=== PATIENT | male | born 1965 | race Caucasian/White ===

== ENCOUNTER 2020-10-17 21:37 | Inpatient (IN) ==
[2020-10-17] MEDS ORDERED: MORPHINE 4 MG/1 ML VIAL IV ONE (22:12)
[2020-10-17] MEDS ORDERED: ONDANSETRON 4 MG/2 ML VIAL IV STA (22:12)
[2020-10-17] MEDS ORDERED: PIPERACILLIN/TAZOBACTAM 3,375 MG in SODIUM CHLORIDE 0.9% 100 ML IV STA (23:28)
[2020-10-17] MEDS ORDERED: DIPH/TET/ACEL PERT BOOSTER VACCINE 0.5 ML VIAL IM ONE (23:29)
[2020-10-18 00:55] LABS: Basophils % 0.1 % (0.0-0.8); Eosinophils % 0.1 % (0.00-10.9); Hematocrit 44.2 VOL% (42.0-52.0); Hemoglobin 15.3 GM/DL (14.0-18.0); Immature Granulocytes Absolute 0.15 #; Lymphocytes # 0.7 10*3/uL (1.4-4.0); Lymphocytes % 4.2 % (21.2-54.2); Mean Corpuscular HGB Conc 34.6 GM/DL (32-36); Mean Corpuscular Volume 95.5 FL (87-102); Mean Platelet Volume 10.8 FL (9.6-12.0); Monocytes % 8.5 % (1.7-12.7); Neutrophils % 86.1 % (38.7-73.9); Platelet Count 165 T/CUMM (130-400); Red Blood Count 4.63 MC/CUMM (3.8-5.5); Red Cell Distribution Width 12.9 % (9.3-17.3); White Blood Count 15.8 T/CUMM (4-12)
[2020-10-18 01:07] LABS: Calcium 8.7 MG/DL (8.5-10.1); Potassium 4.6 MMOL/L (3.5-5.1)
[2020-10-18 01:11] LABS: CKMB % 0.9 %; Troponin I < 0.015 NG/ML (0.00-0.045)
[2020-10-18] MEDS ORDERED: PROMETHAZINE 25 MG/1 ML VIAL IM PRN (01:31)
[2020-10-18] MEDS ORDERED: HYDROmorphone 2 MG/1 ML VIAL IV PRN ×3 (01:31→08:44)
[2020-10-18] MEDS ORDERED: ACETAMINOPHEN 325 MG TABLET PO PRN (01:31)
[2020-10-18] MEDS: LACTATED RINGERS 1,000 ML IV SCH ×3 (01:41→21:57)
[2020-10-18 02:26] LABS: Band Neutrophils 10 % (0-10); Lymphocytes 8 % (20-55); Segmented Neutrophils 73 % (50-85); Total Cells Counted 100
[2020-10-18 02:27] LABS: Hypochromasia 1+; Platelet Estimate Normal
[2020-10-18] MEDS: ONDANSETRON 4 MG/2 ML VIAL IV PRN ×2 (05:30→09:52)
[2020-10-18] MEDS ORDERED: ALBUTEROL/IPRATROPIUM 3 ML NEB RESP TX PRN (08:46)
[2020-10-18] MEDS ORDERED: KETOROLAC 15 MG/1 ML VIAL IV SCH (09:00)
[2020-10-18] MEDS: PANTOPRAZOLE 40 MG TABLET PO SCH (09:29)
[2020-10-18] MEDS: PIPERACILLIN/TAZOBACTAM 3,375 MG in SODIUM CHLORIDE 0.9% 100 ML IV SCH ×3 (09:29→22:49)
[2020-10-18] MEDS ORDERED: ONDANSETRON 4 MG/2 ML VIAL IV PRN (10:44)
[2020-10-18] MEDS ORDERED: NALOXONE 0.4 MG/ML VIAL IV PRN (10:47)
[2020-10-18] MEDS: KETOROLAC 30 MG/1 ML VIAL IV SCH ×3 (10:51→21:13)
[2020-10-18 11:36] LABS: CKMB % 0.7 %; Troponin I < 0.015 NG/ML (0.00-0.045)
[2020-10-18] MEDS: HYDROmorphone PCA 30 MG/30 ML SYRINGE IV SCH (11:51)
[2020-10-18 13:08] LABS: CKMB % 0.6 %; Troponin I < 0.015 NG/ML (0.00-0.045)
[2020-10-18] MEDS: ALBUTEROL/IPRATROPIUM 3 ML NEB RESP TX SCH ×2 (13:39→20:01)
[2020-10-18] MEDS ORDERED: ROPIVACAINE 0.5% 30 ML VIAL NERVEBLOCK ONE ×2 (14:49→15:00)
[2020-10-18] MEDS ORDERED: TRIAMCINOLONE ACETONIDE 40 MG/1 ML VIAL MISC INJ ONE (15:01)
[2020-10-18 16:10] LABS: Troponin I < 0.015 NG/ML (0.00-0.045)
[2020-10-19] MEDS: ALBUTEROL/IPRATROPIUM 3 ML NEB RESP TX SCH ×4 (00:48→19:25)
[2020-10-19] MEDS: LACTATED RINGERS 1,000 ML IV SCH ×2 (01:31→06:15)
[2020-10-19] MEDS: KETOROLAC 30 MG/1 ML VIAL IV SCH ×4 (02:46→21:03)
[2020-10-19 05:19] LABS: Basophils % 0.1 % (0.0-0.8); Hematocrit 36.6 VOL% (42.0-52.0); Immature Granulocytes % 0.3 %; Immature Granulocytes Absolute 0.02 #; Lymphocytes # 1.3 10*3/uL (1.4-4.0); Lymphocytes % 16.3 % (21.2-54.2); Mean Corpuscular HGB Conc 35.2 GM/DL (32-36); Mean Corpuscular Volume 94.1 FL (87-102); Mean Platelet Volume 11.1 FL (9.6-12.0); Monocytes % 9.9 % (1.7-12.7); Neutrophils % 73.4 % (38.7-73.9); Platelet Count 136 T/CUMM (130-400); Red Blood Count 3.89 MC/CUMM (3.8-5.5); White Blood Count 7.9 T/CUMM (4-12)
[2020-10-19 05:20] LABS: Hemoglobin 12.9 GM/DL (14.0-18.0)
[2020-10-19 05:42] LABS: Hypochromasia Slight; Microcytosis Slight
[2020-10-19 05:45] LABS: Albumin 2.9 G/DL (3.4-5.0); Bilirubin,Total 1.1 MG/DL (0.2-1.0); Calcium 8.1 MG/DL (8.5-10.1); Potassium 4.4 MMOL/L (3.5-5.1); Total Protein 6.1 G/DL (6.4-8.2)
[2020-10-19] MEDS: PIPERACILLIN/TAZOBACTAM 3,375 MG in SODIUM CHLORIDE 0.9% 100 ML IV SCH ×2 (06:15→17:18)
[2020-10-19] MEDS: PANTOPRAZOLE 40 MG TABLET PO SCH (09:19)
[2020-10-19] MEDS ORDERED: fentaNYL 100 MCG/2 ML VIAL ONE (13:35)
[2020-10-19] MEDS ORDERED: LIDOCAINE 2% 5 ML VIAL ONE (13:38)
[2020-10-19] MEDS ORDERED: SUCCINYLCHOLINE 200 MG/10 ML VIAL ONE (13:38)
[2020-10-19] MEDS ORDERED: propofoL 200 MG/20 ML VIAL IV ONE ×2 (13:38→14:30)
[2020-10-19] MEDS ORDERED: MIDAZOLAM 2 MG/2 ML VIAL ONE (13:57)
[2020-10-19] MEDS ORDERED: ONDANSETRON 4 MG/2 ML VIAL ONE (14:35)
[2020-10-19] MEDS ORDERED: BACITRACIN OINT 0.9 GM PACK TOP ONE ×2 (14:42→15:12)
[2020-10-19] MEDS: HYDROmorphone PCA 30 MG/30 ML SYRINGE IV SCH (16:02)
[2020-10-20] MEDS: PIPERACILLIN/TAZOBACTAM 3,375 MG in SODIUM CHLORIDE 0.9% 100 ML IV SCH ×3 (01:14→17:37)
[2020-10-20] MEDS: KETOROLAC 30 MG/1 ML VIAL IV SCH ×4 (03:10→21:16)
[2020-10-20] MEDS: ALBUTEROL/IPRATROPIUM 3 ML NEB RESP TX SCH ×4 (05:12→18:10)
[2020-10-20] MEDS: LACTATED RINGERS 1,000 ML IV SCH ×2 (05:21→08:17)
[2020-10-20] MEDS: PANTOPRAZOLE 40 MG TABLET PO SCH (09:33)
[2020-10-20] MEDS: HYDROmorphone PCA 30 MG/30 ML SYRINGE IV SCH (11:56)
[2020-10-21] MEDS: PIPERACILLIN/TAZOBACTAM 3,375 MG in SODIUM CHLORIDE 0.9% 100 ML IV SCH ×2 (00:54→09:41)
[2020-10-21] MEDS: ALBUTEROL/IPRATROPIUM 3 ML NEB RESP TX SCH ×2 (01:14→08:00)
[2020-10-21] MEDS: KETOROLAC 30 MG/1 ML VIAL IV SCH ×2 (03:33→09:40)
[2020-10-21] MEDS: PANTOPRAZOLE 40 MG TABLET PO SCH (09:39)
[2020-10-21 11:36] VITALS: BP 145/86
== END 2020-10-21 12:30 | disposition home or self-care (01) | DRG 571 ==
LOC: N.ED 21:37 → N.EDINP 21:37 → N.5E 10-18 10:28
PROVIDERS: ADMIT Student in an Organized Health Care Education/Training Program; ATTEND Student in an Organized Health Care Education/Training Program